=== PATIENT | female | born 1980 | race African-American/Black ===

== ENCOUNTER 2016-12-03 12:39 | Outpatient (CLI) | payer MEDICAID, OTHER ==
--- NOTE | 2016-12-03 14:15 | RAD ---
TWO VIEWS CHEST: Comparison: None. History: Chest wall pain for one month after falling three months ago. FINDINGS: Two views of the chest show normal sized cardiomediastinal silhouette. There is no evidence of conso lidation, mass, or pleural effusion. Lamas rods are seen in the spine. IMPRESSION: No evidence of acute cardiopulmonary disease. POS: [facility]
[2016-12-03 20:34] LABS: Hemoglobin A1c 5.7 % (4.0-6.0)
[2016-12-03 20:35] LABS: ALT (SGPT) 7 U/L (8-55); AST (SGOT) 11 U/L (5-34); Albumin 3.8 g/dL (3.5-5.0); Alkaline Phosphatase 44 U/L (40-150); Anion Gap 9 mmol/L (10-20); BUN (Urea Nitrogen) 7 mg/dL (7.0-18.7); Bilirubin, Total 0.5 mg/dL (0.2-1.2); Calc. Creatinine Clearance 0 mL/min (70-130); Calcium 9.1 mg/dL (7.8-10.44); Carbon Dioxide 26 mmol/L (22-29); Cardiac Risk 3.5 (Less than 4.5); Chloride 107 mmol/L (98-107); Cholesterol 177 mg/dl (< 200 Desired); Estimated GFR-MDRD Greater than 90; Glucose 99 mg/dL (70-105); HDL Cholesterol 51 mg/dL (>60 Neg Risk); LDL Cholesterol, Calculated 105 mg/dL; Potassium 4.2 mmol/L (3.5-5.1); Protein, Total 6.8 g/dL (6.0-8.3); Sodium 138 mmol/L (136-145); Triglycerides 105 mg/dL (Less than 150)
[2016-12-03 20:43] LABS: #Basophils 0.1 thou/uL (0.0-0.2); #Eosinphils 0.3 thou/uL (0.0-0.7); #Lymphocytes 2.2 thou/uL (1.20-3.40); #Monocytes 0.5 thou/uL (0.11-0.59); #Neutrophils 2.5 thou/uL (1.40-6.50); %Basophils 1.5 % (0.0-1.0); %Eosinophils 5.4 % (0.0-10.0); %Lymphocytes 39.2 % (21.0-51.0); %Monocytes 8.6 % (0.0-10.0); %Neutrophils 45.3 % (42.0-75.0); Hemoglobin 9.5 g/dL (12.0-16.0); Mean Corpuscular HGB CONC 31.6 g/dL (32.0-36.0); Mean Corpuscular Hemoglobin 24.7 pg (27.0-31.0); Mean Corpuscular Volume 78.2 fl (81.0-99.0); Platelet Count 351 thou/uL (130-400); RBC Distribution Width 19.7 % (11.5-14.5); Red Blood Cell (RBC) Count 3.83 mill/uL (4.20-5.40); White Blood Cell (WBC) Count 5.6 thou/uL (4.8-10.8)
== END 2016-12-03 12:40 | disposition home or self-care (01) ==
LOC: MADLAB 12:39
PROVIDERS: ATTEND Family Medicine
DX: R73.01 Impaired fasting glucose (principal)
CPT/HCPCS: 36415; 71020; 80053; 80061; 83036; 84443; 85025